=== PATIENT | female | born 1965 | race Caucasian/White ===

== ENCOUNTER → 2016-03-28 | Outpatient (CLI) | payer OTHER, MEDICAID | LOC: BHLMT 15:30 | PROVIDERS: ATTEND Internal Medicine Cardiovascular Disease | DX: I10 Essential (primary) hypertension (principal); I44.4 Left anterior fascicular block | CPT/HCPCS: 93005-PO; 93306-PO ==

== ENCOUNTER 2016-04-08 11:38 | Inpatient (IN) | payer OTHER, MEDICAID ==
[2016-04-08] MEDS ORDERED: NS 1,000 ML IV ONE (12:16)
[2016-04-08] MEDS ORDERED: diphenhydrAMINE 25 MG CAP PO ONE (12:16)
[2016-04-08] MEDS ORDERED: ASPIRIN EC 325 MG TAB PO ONE (12:16)
[2016-04-08] MEDS ORDERED: FAMOTIDINE 20 MG TAB PO ONE (12:16)
[2016-04-08] MEDS ORDERED: DIAZEPAM 5 MG TAB PO ONE (12:16)
--- NOTE | 2016-04-08 12:31 | CPEKG ---
Heart Rate: 62 RR Interval: 968 P-R Interval: 144 QRSD Interval: 96 QT Interval: 448 QTC Interval: 455 P Prewitt: 0 QRS Prewitt: -38 T Wave Prewitt: 59 EKG Severity - BORDERLINE ECG - EKG Impression: SINUS RHYTHM EKG Impression: ATRIAL PREMATURE COMPLEX EKG Impression: LEFT AXIS DEVIATION EKG Impression: BORDERLINE R WAVE PROGRESSION, ANTERIOR LEADS Electronically Signed By: Inocencia Saavedra 08-Apr-2016 12:47:00
[2016-04-08 13:13] LABS: % IMMATURE GRANULYOCYTES 1.2 % (0.0-1.1); ABSOLUTE IMMATURE GRANULOCYTES 0.16 10^3/uL (0.00-0.10); ABSOLUTE NRBC COUNT 0.03 10^3/uL (0-0.01); ADD DIFF? NO; ADD MORPH? NO; ADD SCAN? NO; ATYPICAL LYMPHOCYTE FLAG 0 (0-99); FRAGMENT RBC FLAG 20 (0-99); HEMOGLOBIN 8.4 g/dL (12.6-16.3); LEFT SHIFT FLG 0 (0-99); LIPEMIA HEMOLYSIS FLAG 80 (0-99); MEAN CELL HEMOGLOBIN 26.6 pg (27.9-34.1); MEAN CELL VOLUME 88.6 fL (81.5-99.8); MEAN PLATELET VOLUME 11.3 fL (8.7-11.7); NRBC-AUTO% 0.2 % (0.0-0.2); PLATELET CLUMPS FLAG 10 (0-99); PLATELET COUNT 244 10^3/uL (150-400); RED BLOOD CELL COUNT 3.16 10^6/uL (4.18-5.33); RED CELL DISTRIBUTION WIDTH 16.6 % (11.5-15.2)
[2016-04-08 13:22] LABS: INR 1.02 (0.83-1.16); PROTIME(PATIENT) 13.3 SEC (12.0-15.0)
[2016-04-08 13:33] LABS: ANION GAP 11 mEq/L (8-16); CALCIUM 8.7 mg/dL (8.5-10.4); CARBON DIOXIDE 17 mEq/l (22-31); CHLORIDE 115 mEq/L (97-110); CREATININE 5.1 mg/dL (0.6-1.0); GLOMERULAR FILTRATION RATE 9; GLUCOSE 104 mg/dL (70-100); POTASSIUM 4.1 mEq/L (3.5-5.2); SODIUM 143 mEq/L (134-144)
[2016-04-08 14:12] LABS: MAGNESIUM 2.4 mg/dL (1.6-2.3)
[2016-04-08] MEDS ORDERED: LIDOCAINE 1% 30 ML SDV ONE (14:37)
[2016-04-08] MEDS ORDERED: fentaNYL 100 MCG/2 ML INJ ONE (14:37)
[2016-04-08] MEDS ORDERED: MIDAZOLAM 2 MG/2 ML VIAL ONE (14:37)
[2016-04-08] MEDS ORDERED: IOPAMIDOL (ISOVUE-370) 150 ML BTL IV ONE (14:38)
[2016-04-08] MEDS ORDERED: HYDROCODONE/APAP 5/325 TAB PO PRN (16:48)
--- NOTE | 2016-04-08 17:01 | PDDXCAT ---
Diagnostic Cath Note - . Date: 04/08/16 Dumbwaiter Operator: Bryce Indication: other (Large pericardial effusion with borderline tamponade on echo. ) - Procedure Procedure: other (Pericardiocentesis) Complications: None Estimated blood loss: <50ml Closure method: manual pressure Assessment: Successful pericardiocentesis. Intervention: The patient had a transthoracic echocardiogram performed in the office of [facility] today. I was contacted by Dr. Barbara Lora regarding the findings of a large pericardial effusion with borderline tamponade. The patient was brought to the rn labor delivery and placed on a wedge pillow. Echocardiographic images were obtained at the subxiphoid area in order to protect the path of the pericardiocentesis needle. The subxiphoid area was prepped and draped in sterile fashion. Local anesthesia consisted of 1% lidocaine. A 6 [place] pericardiocentesis catheter was placed into the pericardial space using the modified Seldinger technique. A total of 725 cc of nonbloody straw-colored blood was obtained. Repeat echocardiographic images demonstrated complete evacuation of the pericardial effusion. Patient Problems: Problems Problem Status Diagnosed Esophagitis Acute Pneumonia Acute Renal transplant failure and rejection Acute
[2016-04-08] MEDS ORDERED: OXYCODONE/APAP 5/325 TAB ONE (17:21)
[2016-04-08] MEDS ORDERED: OXYCODONE/APAP 5/325 TAB PO PRN (17:29)
[2016-04-08] MEDS: ONDANSETRON 4 MG/2 ML VIAL IVP PRN (19:57)
[2016-04-08] MEDS ORDERED: NITROGLYCERIN 0.4 MG BTL SL PRN (20:34)
[2016-04-08] MEDS ORDERED: hydrALAZINE 25 MG TAB PO SCH (21:00)
[2016-04-08] MEDS ORDERED: ALLOPURINOL 300 MG TAB PO SCH (21:00)
[2016-04-08] MEDS ORDERED: NON-FORMULARY NEW DRUG (Mycophenolate Sodium [Myfortic] 360 MG) PO SCH (21:00)
[2016-04-08] MEDS: ATORVASTATIN CALCIUM 10 MG TAB PO SCH (21:49)
[2016-04-08] MEDS: TACROLIMUS 1 MG CAP PO SCH (21:49)
[2016-04-08] MEDS: PANTOPRAZOLE SODIUM 40 MG TAB PO SCH (21:49)
[2016-04-08] MEDS: MYCOPHENOLATE SODIUM 180 MG TAB.DR PO SCH (22:16)
[2016-04-08] MEDS: BUMETANIDE 2 MG TAB PO SCH (22:16)
[2016-04-09] MEDS: ACETAMINOPHEN 325 MG TAB PO PRN ×2 (03:36→15:09)
[2016-04-09 05:07] LABS: % IMMATURE GRANULYOCYTES 0.8 % (0.0-1.1); ABSOLUTE IMMATURE GRANULOCYTES 0.11 10^3/uL (0.00-0.10); ABSOLUTE NRBC COUNT 0.02 10^3/uL (0-0.01); ADD DIFF? NO; ADD MORPH? YES; ADD SCAN? NO; ATYPICAL LYMPHOCYTE FLAG 0 (0-99); FRAGMENT RBC FLAG 20 (0-99); HEMATOCRIT 26.8 % (38.0-47.0); HEMOGLOBIN 7.7 g/dL (12.6-16.3); LEFT SHIFT FLG 0 (0-99); LIPEMIA HEMOLYSIS FLAG 70 (0-99); MEAN CELL HEMOGLOBIN 26.2 pg (27.9-34.1); MEAN CELL VOLUME 91.2 fL (81.5-99.8); MEAN PLATELET VOLUME 11.4 fL (8.7-11.7); NRBC-AUTO% 0.2 % (0.0-0.2); PLATELET CLUMPS FLAG 0 (0-99); PLATELET COUNT 223 10^3/uL (150-400); RED BLOOD CELL COUNT 2.94 10^6/uL (4.18-5.33); RED CELL DISTRIBUTION WIDTH 16.6 % (11.5-15.2)
[2016-04-09 05:09] LABS: MEAN CELL HEMOGLOBIN CONCENTR. 28.7 g/dL (32.4-36.7)
[2016-04-09 05:35] LABS: ELLIPTOCYTES 1+; LARGE PLATELETS PRESENT; PLATELET ESTIMATE ADEQUATE (ADEQ); POLYCHROMASIA 1+
[2016-04-09] MEDS: LEVOTHYROXINE 112 MCG TAB PO SCH (06:10)
[2016-04-09] MEDS: ONDANSETRON 4 MG/2 ML VIAL IVP PRN (08:07)
--- NOTE | 2016-04-09 08:54 | SOAPPROG ---
SOAP Progress Note Assessment/Plan: Assessment: See dictated note. Plan: 04/10/16 08:22 Objective: Vital Signs Temp Pulse Resp BP Pulse Ox 36.8 C 63 14 143/75 H 89 L 04/09/16 07:49 04/09/16 07:49 04/09/16 07:49 04/09/16 07:49 04/09/16 07:49 Laboratory Results 04/09/16 03:12 04/08/16 12:20 04/08/16 04/09/16 04/10/16 05:59 05:59 05:59 Intake Total 80 Balance 80 PT 13.3 SEC (12.0-15.0) 04/08/16 12:20 INR 1.02 (0.83-1.16) 04/08/16 12:20 ICD10 Worksheet Patient Problems: Problems Problem Status Diagnosed Esophagitis Acute Pneumonia Acute Renal transplant failure and rejection Acute
[2016-04-09] MEDS ORDERED: ALLOPURINOL 100 MG TAB PO SCH ×2 (09:00→09:06)
[2016-04-09] MEDS ORDERED: SODIUM FERRIC GLUCONAT/SUCROSE 125 MG in NS 100 ML IV SCH (09:00)
[2016-04-09] MEDS ORDERED: CALCITRIOL 1 MCG PO SCH (09:00)
[2016-04-09] MEDS: predniSONE 5 MG TAB PO SCH (09:35)
[2016-04-09] MEDS: CARVEDILOL 6.25 MG TAB PO SCH ×2 (09:35→18:19)
[2016-04-09] MEDS: ISOSORBIDE MONONITRATE 30 MG TAB.SR PO SCH (09:37)
[2016-04-09] MEDS: PANTOPRAZOLE SODIUM 40 MG TAB PO SCH ×2 (09:37→19:45)
[2016-04-09] MEDS: BUMETANIDE 2 MG TAB PO SCH ×2 (09:38→19:46)
[2016-04-09] MEDS: TACROLIMUS 1 MG CAP PO SCH ×2 (09:38→19:45)
[2016-04-09] MEDS: METOLAZONE 2.5 MG TAB PO SCH (09:38)
[2016-04-09] MEDS: CALCITRIOL 0.25 MCG CAP PO SCH (09:39)
--- NOTE | 2016-04-09 09:42 | GCON ---
[f rep st] CONSULTATION NEPHROLOGY CONSULTATION. DATE OF CONSULTATION: 04/08/2016 REASON FOR CONSULTATION: Worsening renal failure, kidney transplant, large pericardial effusion. 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 History is obtained from the patient, as well as the medical records. The patient is a good historian. The patient underwent a donor transplant in 2009, but had an almost immediate donor specific antibody and humoral rejection. Her initial graft function was poor, with creatinine in the 2s, and she had also been exposed to significant immunosuppression. In the years since, she has had chronically worsening renal function. Most recently, over the past month, she has had severely elevated blood pressures, along with a worsening volume status. Accompanying these changes, her creatinine has continued to increase, and is presently around a 5. The patient does have a functioning fistula, although she is believed to have a central stenosis. Last week, the patient had what sounds like a viral gastroenteritis. She had significant chills, vomiting, and diarrhea. This has now resolved. Relating to her blood pressures and cardiovascular status, she was referred to Dr. Manolo Wu. He ordered a Holter monitor and an echocardiogram. On reading the echocardiogram today, Dr. Lora noted a very large pericardial effusion with borderline tamponade physiology. The patient was then directed for admission, and earlier today, she underwent a pericardiocentesis with drainage of 1 L of serous fluid. Interestingly, she remained hypertensive up to the time of the procedure, and following the procedure, her blood pressure is actually improved. She continues to have some nausea. In the past week, she did have some left shoulder pain that was likely consistent with her pericardial effusion. As relating to these above issues, we are asked by the Cardiology Service to assist with the patient's renal diagnosis and management. PAST MEDICAL HISTORY: 1. End-stage renal disease secondary to autosomal polycystic kidney disease. 2. Hemodialysis from 2006 to 2009. 3. 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 4. History of ascites. 5. Abdominal mesh infection. 6. Hyperkalemia. 7. Hypertension. 8. Hyperlipidemia. 9. GERD. 10. Hypothyroidism. 11. Secondary hyperparathyroidism. 12. Reactive airway disease. 13. Past history of pericarditis. 14. Chronic diarrhea. 15. Urinary tract infections. 16. Herpes esophagitis. 17. DVT. 18. Premature atrial complexes. 19. HPV positive with cervical dysplasia. 20. Acquired von Willebrand's disease. 21. History of bradycardia. SURGICAL HISTORY: 1. Multiple, including renal transplant, and dialysis access placement. 2. Stomach mesh removal. HOME MEDICATIONS: Zofran p.r.n., Lipitor 20 mg daily, Ventolin inhaler, acyclovir 400 mg daily, levothyroxine 125 mcg daily, Coreg 12.5 mg daily, Myfortic 360 mg twice daily, Nexium 40 mg twice a day, Procrit every 2 weeks, amlodipine 10 mg daily, sodium bicarbonate 1950 mg twice daily, calcitriol 1 mcg daily, Ambien p.r.n., allopurinol 100 mg three times daily, prednisone 7.5 mg daily, Qvar daily, Prograf 1 mg twice daily, Bumex 4 mg in the morning and 2 mg in the evening, hydralazine 25 mg twice daily. FAMILY HISTORY: Remarkable for end-stage renal disease due to polycystic kidney disease. SOCIAL HISTORY: The patient lives in [place] with her 15-year-old son. Their relationship has been strained as he has had some issues with the law. She does not smoke cigarettes or drink alcohol. REVIEW OF SYSTEMS: The patient has had significant fatigue and nausea. She has not had much in way of headaches. She has had blurred vision. She denies rhinitis or sore throat. She has had cough and shortness of breath. She has had chest pain radiating to her shoulder. She had nausea, vomiting, and diarrhea last week in the likely setting of a viral illness. She also has chronic diarrhea. She has not had issues with urination. She has had lower extremity edema. She denies numbness in her fingers or toes. She has a history of thyroid disease. PHYSICAL EXAMINATION: GENERAL: At the time of exam, she is appropriate and alert, but she appears chronically ill. VITAL SIGNS: Temp 36.5, pulse 60, blood pressure 122/67. HEENT: Eyes, sclerae clear. Oropharynx clear. NECK: No lymphadenopathy or thyromegaly. LUNGS: Clear to auscultation bilaterally. CARDIOVASCULAR: Regular rate and rhythm with a systolic murmur. ABDOMEN: Soft, nontender. /RECTAL: Deferred. EXTREMITIES: 2+ lower extremity edema. INTEGUMENT: Clear. NEURO: No focal findings. LABORATORY STUDIES: White count 13.7, hematocrit 28, platelets 244. Sodium 143 , potassium 4.1, bicarb 17, creatinine 5.1. IMPRESSION AND PLAN: 1. Pericardial effusion. The patient had borderline tamponade physiology, and the effusion was quite large. However, she really did not have evidence of hemodynamic compromise, as she had actually been hypertensive. Since this drainage, her blood pressure has actually been in the 120s. She has not noted any increase in urination since the tap. The tap was serous in nature. Etiologies could include viral, inflammatory, or it could be related to hydralazine. 2. Renal failure. At this point, the patient has very advanced renal failure with hypertension and volume overload. Once the patient is adequately diuresed, I am concerned her creatinine could be as high as 7 or 8. She is aware of having a very close proximity to dialysis. We did discuss this. Her fistula has a good bruit. Prior to starting dialysis, we will plan on performing a fistulogram. 3. Hypertension. This is significantly improved at the present time. 4. Volume overload. The patient will be maintained on her Bumex, and we will add in metolazone. 5. Anemia. She will be continued on her erythropoietin therapy. Thank you for allowing us to participate in this patient's care. We will continue following closely with you. /[id number]/MODL MTDD
--- NOTE | 2016-04-09 10:02 | GCON ---
[f rep st] CONSULTATION REFERRING PHYSICIAN: Barbara Lora MD REASON FOR CONSULTATION: Stage 5 kidney disease. HISTORY OF PRESENT ILLNESS: This patient is well known to me. She had end-stage renal disease due t o polycystic kidney disease status post kidney transplant from a done, July 01, 2009, [facility]. She had early humoral rejection and underwent plasmapheresis and IVIG therapy. She has had gradual decline in her renal function. She has had past problems with serositis a coup le of years after transplant as well as a prior pericardial effusion that was never completely unders tood. She had been followed by Dr. Wu. She developed herpes esophagitis necessitating cessation of her CellCept; prior history of chronic di arrhea that currently is somewhat quiescent; recurrent urinary tract infections; prior diverticuliti s with contained perforation treated medically. She had cervical dysplasia, DIANA-3, with a recent con e biopsy. She had had intermittent problems with edema over the past year. This has responded intermittently t o diuretics. More recently, this last week, she had chills and diarrhea and thought she had a viral illness. She developed intermittent palpitations and was seen by Dr. Wu' office. Echocardiogr am revealed a large pericardial effusion, which she was referred in here for a pericardiocentesis, wh ich she underwent yesterday; 725 cc of straw-colored fluid were aspirated. She denies any fevers. S he has had some intermittent left shoulder plain with a deep breath but otherwise is not having chest pain. Her blood pressures recently have been running quite high in the 180s. She has a very stressful home situation related to some psychosocial and behavioral problems with her teenage son. For this reaso n, she has not yet been able to be listed with [facility]. Her creatinine this week bumped from her recent baseline in the 3-4 range up to 5.2. She had noted s ome slowing in urine output but no change in color or symptoms of urinary tract infection. PAST MEDICAL HISTORY: See HPI. Recurrent gout. Secondary hyperparathyroidism, hypothyroidism. RICK D. Hyperlipidemia. Hypertension, hyperkalemia on Aldactone. Prior ascites on everolimus. Prior pe ritoneal dialysis, left AV fistula placement. Arachnoid cyst status post surgical correction in 2006 with recurrence deemed not to need surgical management. Neutrophilic leukocytosis thought to be luis ctive by Hematology, possibly due to her chronic humoral rejection. Acquired von Willebrand disease attributed to her chronic kidney disease. Anemia of chronic kidney disease and iron deficiency on Pr ocrit as an outpatient. PAST SURGICAL HISTORY: History of abdominal mesh placement and removal due to infection. Left arm A V fistula. FAMILY HISTORY: Notable for extensive polycystic kidney disease. SOCIAL HISTORY: She had 4 children and lives at home. See HPI. She does not smoke or drink alcohol . REVIEW OF SYSTEMS: See HPI. She has some mild dyspnea on exertion, which is not significant at this point. She had gained 15 pounds recently. ALLERGIES: She has been intolerant of Venofer due to headaches. Prior sulfa allergy but tolerates l oop diuretics okay. Levaquin, Keflex, Cipro, iodine, peanuts, plastics, tape, and otherwise as in ho spital chart. REVIEW OF SYSTEMS: See HPI. No nausea, vomiting, loss of appetite, pruritus, rashes, joint pains. Otherwise 10-systems review negative in detail. PHYSICAL EXAMINATION: VITAL SIGNS: 143/75, heart rate 53, respirations 14, 89% on room air, 36.8 C. GENERAL: Comfortable, well-appearing, slightly overweigh, female in bed who is in good s pirits. HEENT: Eyes without scleral icterus. Oral mucosa is moist with some mild white exudates on her left cheek. NECK: No gross lymphadenopathy. HEART: Regular rate and rhythm with a 2/6 systol ic murmur. LUNGS: Clear to auscultation bilaterally. ABDOMEN: Obese, soft, and nontender. No sup rapubic tenderness. EXTREMITIES: Lower extremities with 2+, [id number], pitting edema. Her lef t arm has a tortuous and enlarged upper arm AV fistula with a good thrill. SKIN: Without rashes. M USCULOSKELETAL: No gross joint swelling or deformities. NEUROLOGIC: No gross focal deficits. LABORATORY DATA: Sodium 143, potassium 4.1, CO2 17, BUN 63, creatinine 5.1. Calcium 8.7. Magnesium 2.4. White count 13, hemoglobin 7.7, platelets 223. IMPRESSION AND PLAN: 1. Stage 5 chronic kidney disease. Her creatinine has recently bumped, possibly hemodynamic related to her pericardial effusion although this seems less likely given that she was hypertensive not hypo tensive at home. Given her recent increases in edema, I am more suspicious this may be a manifestati on of progression of her underlying chronic humoral rejection. Furthermore, her effusion could possi skyler be uremic. She clinically does not appear to have any acute needs for dialysis, but if her effus ion were to recur shortly, I think this would be an indication to start. She will need a fistulogram prior to starting due to a likely central stenosis. She will keep in close touch with our clinic af ter discharge. If we are not able to get control of her edema, that would be another reason to begin dialysis. This decision can likely be made as an outpatient. 2. Pericardial effusion status post tap yesterday. Fluid studies are not yet in the system. Could be hydrostatic versus uremic. She has a history of effusion previously. I would also wonder about s erositis as a manifestation of her underlying chronic humoral rejection. Will check some autoimmune serologies. She does not appear ill, and the fluid was straw colored. Unlikely to be malignant or i nfectious. Could be viral as well given her recent viral symptoms. 3. AV fistula. As above, she will need a fistulogram. I will defer ordering this until we are clos e to needing to start dialysis. 4. Prior kidney transplant. Continue current doses of prednisone and tacrolimus. 5. Anemia of chronic kidney disease. Since she is in-house, I would like to give her a trial of IV Ferrlecit. She has been unable to tolerate oral iron or Venofer in the past due to constipation and headaches. 6. Hypertension. Blood pressure was very high at home but now seems well controlled. I suspect at least a component of this is related to her stressful home situation. 7. Edema. She has been started on metolazone, which I just ordered as an outpatient. We will see h ow she does with this. /[id number]/MODL
[2016-04-09] MEDS: MYCOPHENOLATE SODIUM 180 MG TAB.DR PO SCH ×2 (10:27→19:46)
--- NOTE | 2016-04-09 11:59 | PDCARPN ---
Cardiology Progress Note Assessment/Plan: 51 y/o F admitted for finding of a large pericardial effusion with borderline tamponade physiology. Likely to require greater than 2 midnights given her complex medical history. Pericardial Effusion-s/p pericardiocentesis yesterday with removal of 725 cc of straw-colored fluid. Lab studies pending. Likely uremic in etiology. Some chest discomfort and nausea this a.m. Limited echo this morning demonstrates a small residual effusion. Will plan for repeat outpatient echo in 7-10 days. Hypertension-improved following pericardiocentesis. Continue current medications. Acute and chronic kidney disease of a transplanted kidney- Was seen by her usual panel maker this morning. Metolazone added. May need to initiate dialysis soon. Disposition- Home today or tomorrow. 04/09/16 11:50 Subjective: Chest pain and nausea this a.m. when up and around. Objective: Vital Signs (8 Hrs) Temp Pulse Resp BP Pulse Ox 04/09/16 11:40 36.8 C 53 L 16 127/66 H 91 L 04/09/16 07:49 36.8 C 63 14 143/75 H 89 L Intake/Output (24 Hrs) 04/08/16 04/09/16 04/10/16 05:59 05:59 05:59 Intake Total 80 300 Balance 80 300 Intake: Oral (ml) 80 300 Other: Weight 82.6 kg Number of Voids Toilet 1 Result Diagrams: 04/09/16 03:12 04/08/16 12:20 - Physical Exam Constitutional: no apparent distress Eyes: anicteric sclera Ears, Nose, Mouth, Throat: moist mucous membranes Cardiovascular: regular rate and rhythm, no murmurs, no rubs Respiratory: clear to auscultate bilat Gastrointestinal: normoactive bowel sounds, no tenderness, no masses Skin: no rashes, no edema Neurologic: AAOx3 Psychiatric: not anxious ICD10 Worksheet Patient Problems: Problems Problem Status Diagnosed Esophagitis Acute Pneumonia Acute Renal transplant failure and rejection Acute
[2016-04-09] MEDS ORDERED: VALACYCLOVIR PO SCH (12:00)
--- NOTE | 2016-04-09 13:25 | ECHO ---
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 Left ventricular systolic function is normal. Pericardium/Pleural Large pericardial effusion. Following pericardiocentesis, there is near complete resolution of the pericardial effusion. Conclusion This is a limited study to evaluate pericardial effusion. The left ventricle is normal in size. Left ventricular systolic function is normal. Following pericardiocentesis, there is near complete resolution of the pericardial effusion. Final Reading Physician: Lyn Hernandez signed on 04/09/2016 01:23 PM Ordering Physician: Manolo Wu Performed By: Manolo Wu MD
--- NOTE | 2016-04-09 13:28 | ECHO ---
[id number] + + [address] : : [facility] [address] : : [phone] + + Adult Echocardiographic Report + ------+ :Name: OMAR JUNIOR Date: 04/09/2016 10:33 AM : : Hospital Admission Number: [id number] Locatio n: 200: :: 1965 Gender: Female : :Age: 51 yrs Race: WH : :Reason For Study: eval for pericardial effusion : :History: S/P pericardiocentesis : + ------+ Left Ventricle The left ventricle is normal in size. Left ventricular systolic function is normal. Conclusion Limted echocardiogram to reassess pericardial effusion. Patient is S/P pericardiocentesis 04/08/16. There is a mild to moderate amount of fluid around the RV and RA. There is a moderate amount of fluild around the LV. IVC is dilated. There is no echocardiographic evidence of tamponade. The left ventricle is normal in size. Left ventricular systolic function is normal. Final Reading Physician: Lyn Hernandez signed on 04/09/2016 01:27 PM Ordering Physician: Manolo Wu Performed By: Gladys Amador
[2016-04-09] MEDS: ACYCLOVIR 400 MG TAB PO SCH ×2 (13:34→13:36)
[2016-04-09] MEDS: NYSTATIN SUSP 500000 UNIT/5 ML UDCUP PO SCH ×3 (13:36→19:46)
[2016-04-09] MEDS: ALLOPURINOL 100 MG TAB PO SCH (13:40)
[2016-04-09] MEDS: ATORVASTATIN CALCIUM 10 MG TAB PO SCH (19:46)
[2016-04-09] MEDS ORDERED: NON-FORMULARY NEW DRUG (Simvastatin [Zocor 20 Mg] 20 MG) PO SCH (20:00)
[2016-04-10 05:31] LABS: % IMMATURE GRANULYOCYTES 1.2 % (0.0-1.1); ABSOLUTE IMMATURE GRANULOCYTES 0.12 10^3/uL (0.00-0.10); ADD DIFF? NO; ADD MORPH? NO; ADD SCAN? NO; ATYPICAL LYMPHOCYTE FLAG 0 (0-99); FRAGMENT RBC FLAG 20 (0-99); HEMATOCRIT 25.2 % (38.0-47.0); HEMOGLOBIN 7.4 g/dL (12.6-16.3); LEFT SHIFT FLG 0 (0-99); LIPEMIA HEMOLYSIS FLAG 70 (0-99); MEAN CELL HEMOGLOBIN 26.3 pg (27.9-34.1); MEAN CELL HEMOGLOBIN CONCENTR. 29.4 g/dL (32.4-36.7); MEAN CELL VOLUME 89.7 fL (81.5-99.8); MEAN PLATELET VOLUME 11.4 fL (8.7-11.7); PLATELET CLUMPS FLAG 0 (0-99); PLATELET COUNT 207 10^3/uL (150-400); RED BLOOD CELL COUNT 2.81 10^6/uL (4.18-5.33); RED CELL DISTRIBUTION WIDTH 16.1 % (11.5-15.2)
[2016-04-10 06:02] LABS: ALBUMIN 2.7 g/dL (3.5-5.0); ANION GAP 11 mEq/L (8-16); C-REACTIVE PROTEIN 55.9 mg/L (<10.0); CALCIUM 8.2 mg/dL (8.5-10.4); CARBON DIOXIDE 15 mEq/l (22-31); CHLORIDE 115 mEq/L (97-110); CREATININE 5.4 mg/dL (0.6-1.0); GLOMERULAR FILTRATION RATE 8; GLUCOSE 84 mg/dL (70-100); POTASSIUM 4.8 mEq/L (3.5-5.2); SODIUM 141 mEq/L (134-144)
[2016-04-10 06:46] LABS: SEDIMENTATION RATE 32 MM/HR (0-30)
[2016-04-10] MEDS: LEVOTHYROXINE 112 MCG TAB PO SCH (06:57)
[2016-04-10] MEDS: NYSTATIN SUSP 500000 UNIT/5 ML UDCUP PO SCH ×2 (06:59→11:56)
[2016-04-10 08:22] VITALS: BP 139/76; PULSE 68; RESP 14; TEMP 98.6; O2SAT 91
[2016-04-10] MEDS: BUMETANIDE 2 MG TAB PO SCH (08:50)
[2016-04-10] MEDS: ALLOPURINOL 100 MG TAB PO SCH (08:51)
[2016-04-10] MEDS: TACROLIMUS 1 MG CAP PO SCH (08:51)
[2016-04-10] MEDS: ISOSORBIDE MONONITRATE 30 MG TAB.SR PO SCH (08:51)
[2016-04-10] MEDS: MYCOPHENOLATE SODIUM 180 MG TAB.DR PO SCH (08:52)
[2016-04-10] MEDS: PANTOPRAZOLE SODIUM 40 MG TAB PO SCH (08:52)
[2016-04-10] MEDS: METOLAZONE 2.5 MG TAB PO SCH (08:52)
[2016-04-10] MEDS: CALCITRIOL 0.25 MCG CAP PO SCH (08:52)
[2016-04-10] MEDS: predniSONE 5 MG TAB PO SCH (08:53)
[2016-04-10] MEDS: CARVEDILOL 6.25 MG TAB PO SCH (08:53)
--- NOTE | 2016-04-10 09:47 | SOAPPROG ---
SOAP Progress Note Assessment/Plan: Assessment: 1. MARISA on CKD V. Creat has not improved despite pericardiocentesis. Up to 5.4 today. eGFR 8. Pericardial effusion seems likely to be uremic. Discussed that dialysis is imminent. Pt stongly prefers to wait, f/u as outpatient. Check q wk labs, has f/u in clinic in 1-2 wks. 2. Pericardial effusion. Cxs neg thus far. No wbc, >700 rbc. CRP high. Likely uremic vs serositis possibly related to her chronic tx rejection (has CRP > 50) , possibly hydrostatic related to edema. Serologies pending for AI causes, AFB/ cytology pending. F/u echo net week. If fluid reaccumulating needs to start HD. 3. AVF. Central stenosis. Needs fistulagram before starting HD. 4. Kidney tx. Continue pred/prograf. Failing d/t chronic humoral rejection. 5. Edema. Metolazone added. Follow home weights. Shoot for gradual loss to around 170 lbs. Plan: 04/10/16 08:22 04/10/16 09:40 Subjective: C/o limited food selection. Has noted increased uop with metolazone. O/w not expressing complaints. Objective: Vital Signs Temp Pulse Resp BP Pulse Ox 37.0 C 68 14 139/76 H 91 L 04/10/16 08:21 04/10/16 08:21 04/10/16 08:21 04/10/16 08:21 04/10/16 08:21 Microbiology 04/08/16 11:33 Mycobacterial Smear (KENNETH) - Final Pericardial Fluid - Aspirate 04/08/16 11:33 Gram Stain - Final Pericardial Fluid - Aspirate Laboratory Results 04/10/16 03:57 04/10/16 03:57 04/09/16 04/10/16 04/11/16 05:59 05:59 05:59 Intake Total 80 1350 Balance 80 1350 PT 13.3 SEC (12.0-15.0) 04/08/16 12:20 INR 1.02 (0.83-1.16) 04/08/16 12:20 Comfortable wf in bed RRR, no m/g/r CTAB Abdom soft, nt 2-3+ LE pitting edema ICD10 Worksheet Patient Problems: Problems Problem Status Diagnosed Esophagitis Acute Pneumonia Acute Renal transplant failure and rejection Acute
[2016-04-10] MEDS: ACYCLOVIR 400 MG TAB PO SCH (11:56)
--- NOTE | 2016-04-10 12:02 | GDS ---
[f rep st] DISCHARGE SUMMARY REASON FOR ECHO: Large pericardial effusion. HOSPITAL COURSE: Please refer to her recent office note which serves as the history and physical for this hospital encounter. The patient is a 51-year-old woman with end-stage renal disease, status po st a cadaveric renal transplant in 2009. Unfortunately, she has had issues from early on after her t ransplant. Recently, her kidney function has deteriorated significantly with a creatinine in excess of 5. She was seen in our office by Graham Gomes, nurse practitioner. She reported episodes of irregular heart rhythm, some chest discomfort, worsening fluid retention. She was scheduled for an e chocardiogram. On April 08, she came to the office for her echo and the images demonstrated a larg e pericardial effusion with borderline tamponade physiology. Based on the findings, she was sent dir ectly to the [facility] to undergo pericardiocentesis. This was carried out on the afternoon of April 08, then a total of 725 cc of straw-colored fluid was removed. Followup echo images the next morning de monstrated a small amount of residual pericardial fluid, most of which was located posteriorly. She had some chest discomfort and nausea the morning after her procedure. She was kept in the hospital o vernight for further observation. Today, she is feeling better and is ready for discharge. During t his hospital stay, she was seen by Dr. Dustin Maldonado, who is her usual castings trimmer. His feeling is that she will likely need to initiate dialysis in the near future. For now, she would prefer to hold off if possible. Dr. Maldonado added metolazone to her regimen to help with her fluid retention. RECOMMENDATIONS AND DISPOSITION ON DISCHARGE: The patient is discharged in stable condition. She sh ould continue to follow a renal diet. Please refer to the medication reconciliation section of the e lectronic chart. The only change to her home medications is the addition of metolazone [address] Maldonado plans to follow her up closely with frequent monitoring of her electrolytes and renal fun ction. She is scheduled for a followup appointment with Graham Gomes, nurse practitioner, on Apr ruary at 2 o'clock. Immediately prior to that appointment, at 1:15 p.m., she will undergo a limite d echocardiogram to assess for the accumulation of her pericardial effusion. Dr. Maldonado indicated t hat if she demonstrates early pericardial fluid reaccumulation that would serve as an indication to s tart dialysis relatively soon. DISCHARGE DIAGNOSES: 1. End-stage renal disease. 2. Pericardial effusion likely uremic in etiology. /[id number]/MODL
[2016-04-11 18:16] LABS: C3 COMPLEMENT COMPONENT 114 mg/dL (75 - 175); C4 COMPLEMENT COMPONENT 33 mg/dL (14 - 40)
== END 2016-04-10 12:21 | disposition home health service (06) | DRG 314 ==
LOC: FCATH 11:38 → F2W 17:01
PROVIDERS: ADMIT Internal Medicine Interventional Cardiology; ATTEND Internal Medicine Interventional Cardiology
PROC: 0W9D3ZZ Drainage of Pericardial Cavity, Percutaneous Approach (ICD-10-PCS; principal; 2016-04-08)
DX: I31.3 Pericardial effusion (noninflammatory) (principal); N18.6 End stage renal disease; D68.0 Von Willebrand disease; I12.0 Hypertensive chronic kidney disease with stage 5 chronic kidney disease or end stage renal disease; Z94.0 Kidney transplant status; E78.5 Hyperlipidemia, unspecified; I44.4 Left anterior fascicular block; D63.1 Anemia in chronic kidney disease; E03.9 Hypothyroidism, unspecified; E21.1 Secondary hyperparathyroidism, not elsewhere classified; J45.909 Unspecified asthma, uncomplicated; Z86.718 Personal history of other venous thrombosis and embolism
CPT/HCPCS: 83516-90; 83520-90; J1644; J2250; J2405; J2916; J3010; J7507; Q9967

== ENCOUNTER → 2016-04-08 | Outpatient (CLI) | payer OTHER, MEDICAID | LOC: BHFA 10:00 | PROVIDERS: ATTEND Internal Medicine Cardiovascular Disease | DX: R07.9 Chest pain, unspecified (principal); R00.2 Palpitations; I10 Essential (primary) hypertension ==

== ENCOUNTER → 2016-04-17 | Outpatient (CLI) | payer OTHER, MEDICAID | LOC: BHLMT 08:30 | PROVIDERS: ATTEND Internal Medicine Interventional Cardiology | DX: I31.9 Disease of pericardium, unspecified (principal) | CPT/HCPCS: 93306-PO ==

== ENCOUNTER → 2016-05-15 | Outpatient (CLI) | payer OTHER | LOC: BHLMT 09:15 | PROVIDERS: ATTEND Internal Medicine Interventional Cardiology | DX: I31.9 Disease of pericardium, unspecified (principal) | CPT/HCPCS: 93306-PO ==

== ENCOUNTER → 2016-07-15 | Outpatient (CLI) | payer OTHER, MEDICAID | LOC: BHLMT 10:00 | PROVIDERS: ATTEND Internal Medicine Interventional Cardiology | DX: I31.9 Disease of pericardium, unspecified (principal) | CPT/HCPCS: 93306-PO ==

== ENCOUNTER → 2016-09-03 | Outpatient (CLI) | payer OTHER, MEDICAID | LOC: FIMAGING 15:07 | PROVIDERS: ATTEND Psychiatry & Neurology Neurology | DX: M51.34 Other intervertebral disc degeneration, thoracic region (principal) ==

== ENCOUNTER 2016-09-11 08:49 | Emergency (ER) | payer OTHER, MEDICAID ==
--- NOTE | 2016-09-11 09:02 | CPEKG ---
Heart Rate: 61 RR Interval: 984 P-R Interval: 160 QRSD Interval: 102 QT Interval: 424 QTC Interval: 427 P [place]: 1 QRS [place]: -43 T Wave [place]: -4 EKG Severity - ABNORMAL ECG - EKG Impression: SINUS RHYTHM EKG Impression: LEFT ANTERIOR FASCICULAR BLOCK EKG Impression: LEFT VENTRICULAR HYPERTROPHY EKG Impression: BORDERLINE T ABNORMALITIES, INFERIOR LEADS Electronically Signed By: Manolo Wu 12-Sep-2016 14:00:27
--- NOTE | 2016-09-11 09:02 | EDPHY ---
HPI/HX/ROS/PE/MDM Narrative: CHIEF COMPLAINT: Chest pain. HPI: The patient is a 51-year-old female, with history of end-stage renal disease, on dialysis, brought in by EMS, with complaints of chest pain that started yesterday while at dialysis. The patient states she started to feel lightheaded and nauseous. She was given Phenergan and subsequently felt anxious. She went to her primary care physician today complaining of continued chest pain, unrelieved with 2 Nitro. She states her pain is a 7/10 in severity. Chest pain is localized to the substernal region. She denies shortness of breath , lightheadedness, or REVIEW OF SYSTEMS: Aside from elements discussed in the HPI, a comprehensive 10-point review of systems was reviewed and is negative. PMH: End-stage renal disease, Pericardial effusion SOCIAL HISTORY: Single. Lives in [place]. PHYSICAL EXAM: General: Patient is alert, in no acute distress. ENT: Eyes are normal to inspection. ENT inspection normal. Neck: Normal inspection. Full range of motion. Respiratory: No respiratory distress. Breath sounds normal bilaterally. Cardiovascular: Regular rate and rhythm. Strong peripheral pulses. Abdomen: The abdomen is nontender to palpation. There are no peritoneal signs. There are normal bowel sounds. Back: Normal to inspection. No tenderness to palpation. Skin: Normal color. No rash. Warm and dry. Extremities: Normal appearance. Full range of motion. Neuro: Oriented x3. Normal motor function. Normal sensory function. Portions of this note were transcribed by a medical coordinator pesticide use. I personally performed a history, physical exam, medical decision making, and confirmed accuracy of information the transcribed note. ED Course: Patient was admitted for pericardial effusion in April 2016. She had pericardiocentesis with 700ccs of fluid drained. Patient presents today with chest pain, worse with exertion. Plan for lab work, chest x-ray, and EKG. EKG was ordered and interpreted by myself. Please see [employer] system for official reading. Sinus rhythm, left anterior fascicular block. Left ventricle hypertrophy. Chest x-ray reveals possible pericarditis. Patient's creatinine today is 6.2. BUN is elevated at 39. 1020: I consulted [facility], they will see the patient in the ED. 1105: Patient was evaluated by Dr. Garg, Cardiology. He will followup with the patient as an outpatient. MDM: This patient presents with exertional chest pain in the setting of ongoing dialysis and history or prior tamponade. Her echo in the ED today is essentially unremarkable. Her ECG and troponin and normal. I consulted [facility] to see patient. Itzel and Dr. Garg reviewed the patient's findings and records and recommend no admission today - they have established an appointment tomorrow afternoon and feel that patient may be safely discharged. I spoke with the patient and she is comfortable with this plan . - Data Points Imaging Results: Imaging Impressions Chest X-Ray 09/11/16 08:58 Impression: New cardiomegaly without failure. Query pericarditis versus cardiomyopathy? Laboratory Results: Laboratory Results 09/11/16 09:18 09/11/16 09:18 09/11/16 09/11/16 09:18 09:18 WBC 11.93 10^3/uL H 10^3/uL (3.80-9.50) RBC 3.01 10^6/uL L 10^6/uL (4.18-5.33) Hgb 9.7 g/dL L g/dL (12.6-16.3) Hct 30.0 % L % (38.0-47.0) MCV 99.7 fL fL (81.5-99.8) MCH 32.2 pg pg (27.9-34.1) MCHC 32.3 g/dL L g/dL (32.4-36.7) RDW 17.8 % H % (11.5-15.2) Plt Count 179 10^3/uL 10^3/uL (150-400) MPV 11.3 fL fL (8.7-11.7) Neut % (Auto) 84.9 % H % (39.3-74.2) Lymph % (Auto) 7.0 % L % (15.0-45.0) [place] % (Auto) 6.5 % % (4.5-13.0) Eos % (Auto) 0.8 % % (0.6-7.6) Baso % (Auto) 0.3 % % (0.3-1.7) Nucleat RBC Rel Count 0.0 % % (0.0-0.2) Absolute Neuts (auto) 10.14 10^3/uL H 10^3/uL (1.70-6.50) Absolute Lymphs (auto) 0.83 10^3/uL L 10^3/uL (1.00-3.00) Absolute Monos (auto) 0.77 10^3/uL 10^3/uL (0.30-0.80) Absolute Eos (auto) 0.10 10^3/uL 10^3/uL (0.03-0.40) Absolute Basos (auto) 0.03 10^3/uL 10^3/uL (0.02-0.10) Absolute Nucleated RBC 0.00 10^3/uL 10^3/uL (0-0.01) Immature Gran % 0.5 % % (0.0-1.1) Immature Gran # 0.06 10^3/uL 10^3/uL (0.00-0.10) Sodium 141 mEq/L mEq/L (134-144) Potassium 4.3 mEq/L mEq/L (3.5-5.2) Chloride 98 mEq/L mEq/L (97-110) Carbon Dioxide 30 mEq/l mEq/l (22-31) Anion Gap 13 mEq/L mEq/L (8-16) BUN 39 mg/dL H mg/dL (7-23) Creatinine 6.2 mg/dL H mg/dL (0.6-1.0) Estimated GFR 7 Glucose 96 mg/dL mg/dL (70-100) Calcium 9.0 mg/dL mg/dL (8.5-10.4) Troponin I 0.017 ng/mL ng/mL (0-0.034) General Initial Vital Signs: Initial Vital Signs Temperature (C) 36.9 C 09/11/16 08:49 Heart Rate 62 09/11/16 08:49 Respiratory Rate 16 09/11/16 08:49 Blood Pressure 125/73 H 09/11/16 08:49 O2 Sat (%) 92 09/11/16 08:49 O2 Delivery Mode Nasal Cannula O2 (L/minute) 2 Allergies/Adverse Reactions: vancomycin Allergy (Mild, Verified 09/11/16 08:58) Rash cephalexin monohydrate [From Keflex] Allergy (Verified 09/11/16 08:58) iodine Allergy (Verified 09/11/16 08:58) levofloxacin [From Levaquin] Allergy (Verified 09/11/16 08:58) Sulfa (Sulfonamide Antibiotics) Allergy (Verified 09/11/16 08:58) Nuts Allergy (Uncoded 07/30/13 19:23) plastic tape Allergy (Uncoded 04/08/16 18:16) Home Medications: Medication Instructions Recorded Albuterol Sulfate [Albuterol 1 - 2 puffs IH Q4H PRN 07/29/13 Inhaler Hfa] Allopurinol [Allopurinol 100 MG 300 mg PO HS 07/29/13 (*)] Calcitriol [Rocaltrol] 1 mcg PO DAILY 07/29/13 Nitroglycerin [Nitrostat 0.4 mg 0.4 mg SL PRN PRN 07/29/13 (*)] Simvastatin [Zocor 20 mg] 20 mg PO DAILY20 07/29/13 predniSONE 7.5 mg PO DAILY 07/29/13 Acyclovir 400 mg PO DAILY@12 04/08/16 Bumetanide [Bumex (*)] 2 mg PO Q12 04/08/16 Carvedilol [Coreg (*)] 6.25 mg PO BIDMEAL 04/08/16 Isosorbide Mononitrate [Imdur 30 30 mg PO DAILY 04/08/16 mg (*)] Levothyroxine [Synthroid 112 mcg 112 mcg PO DAILY06 04/08/16 (*)] Oxycodone Ir [Oxy Ir 5 mg (RX)] 5 - 10 mg PO Q4 PRN 04/08/16 Metolazone [Zaroxolyn] 5 mg PO DAILY #30 tab 04/10/16 Aspirin 09/11/16 Dialyvite Tablet 09/11/16 EPIPEN 09/11/16 Nexium 09/11/16 Norvasc 09/11/16 Prograf 09/11/16 Qvar 09/11/16 RENVELA 09/11/16 Sodium Bicarbonate 09/11/16 Tranexamic Acid 09/11/16 Zofran Odt 09/11/16 Zolpidem Tartrate 09/11/16 Departure - Departure Disposition: Home, Routine, Self-Care Clinical Impression: Chest pain Qualifiers: Chest pain type: unspecified Qualified Code(s): R07.9 - Chest pain, unspecified Condition: Good Instructions: Chest Pain (ED) Additional Instructions: Please followup with Dr. Wu with [facility] tomorrow at 1pm. Referrals: Manolo Wu MD [Medical Doctor] - As per Instructions (Cardiology) [facility] [Provider Group] - As per Instructions Report Scribed for: Portillo Gray Report Scribed by: Nicoel Vo Date of Report: 09/11/16 Time of Report: 09:12
[2016-09-11 09:24] LABS: % IMMATURE GRANULYOCYTES 0.5 % (0.0-1.1); ABSOLUTE IMMATURE GRANULOCYTES 0.06 10^3/uL (0.00-0.10); ADD DIFF? NO; ADD MORPH? NO; ADD SCAN? YES; ATYPICAL LYMPHOCYTE FLAG 0 (0-99); FRAGMENT RBC FLAG 0 (0-99); HEMOGLOBIN 9.7 g/dL (12.6-16.3); LEFT SHIFT FLG 0 (0-99); LIPEMIA HEMOLYSIS FLAG 80 (0-99); MEAN CELL HEMOGLOBIN 32.2 pg (27.9-34.1); MEAN CELL HEMOGLOBIN CONCENTR. 32.3 g/dL (32.4-36.7); MEAN CELL VOLUME 99.7 fL (81.5-99.8); MEAN PLATELET VOLUME 11.3 fL (8.7-11.7); PLATELET CLUMPS FLAG 0 (0-99); PLATELET COUNT 179 10^3/uL (150-400); RED BLOOD CELL COUNT 3.01 10^6/uL (4.18-5.33); RED CELL DISTRIBUTION WIDTH 17.8 % (11.5-15.2)
[2016-09-11 09:37] LABS: ANION GAP 13 mEq/L (8-16); CARBON DIOXIDE 30 mEq/l (22-31); CHLORIDE 98 mEq/L (97-110); CREATININE 6.2 mg/dL (0.6-1.0); GLOMERULAR FILTRATION RATE 7; GLUCOSE 96 mg/dL (70-100); POTASSIUM 4.3 mEq/L (3.5-5.2); SODIUM 141 mEq/L (134-144)
[2016-09-11 09:49] LABS: TROPONIN I 0.017 ng/mL (0-0.034)
[2016-09-11 09:52] LABS: SCAN NEGATIVE
[2016-09-11 11:25] VITALS: BP 132/78; PULSE 68; RESP 15; TEMP 98.2; O2SAT 96
--- NOTE | 2016-09-11 12:02 | ECHO ---
[id number] + + [address] : : [place] [address] : : [phone] + Adult Echocardiographic Report + ---+ :Name: OMAR JUNIOR Date: 09/11/2016 09:32 AM : : Hospital Admission Number: [id number] Location: ER: :: 1965 Gender: Female : :Age: 51 yrs Race: WH : :Reason For Study: Eval for Pericardial Effusion : :History: Pericardiocentisis 04/08/16, Now presenting with : :SOB and CP : + ---+ Doppler Measurements \T\ Calculations MV E max lennie: 97.2 cm/sec Left Ventricle The left ventricle is normal in size. There is normal left ventricular wall thickness. The left ventricular ejection fraction is normal. Ejection Fraction = 60%. The left ventricular wall motion is normal. Right Ventricle The right ventricle is grossly normal size. The right ventricular systolic function is normal. Mitral Valve The mitral valve leaflets appear normal. There is no evidence of stenosis, fluttering, or prolapse. Tricuspid Valve Normal tricuspid valve. Aortic Valve The aortic valve is trileaflet. The aortic valve opens well. Pulmonic Valve The pulmonic valve is not well visualized. Pericardium/Pleural Small posterior pericardial effusion. There are no echocardiographic indications of cardiac tamponade. Conclusion This is a limited echo to evaluate for pericardial effusion. (1) Limited echocardiogram for assessment of pericardial effusion (2) Normal left ventricular systolic ejection fraction (60%) - normal wall motion (3) Normal RV, RA, LA chamber dimensions (4) There is a small posterior pericardial effusion without tamponade physiology noted (5) In comparison to prior, the pericardial size is smaller Final Reading Physician: Lyn Pearson signed on 09/11/2016 11:59 AM Ordering Physician: Portillo Gray Performed By: Justen Painter, [facility]
== END 2016-09-11 11:24 | disposition home or self-care (01) ==
LOC: EDUNIT#
DX: R07.9 Chest pain, unspecified (principal); Z79.82 Long term (current) use of aspirin

== ENCOUNTER 2016-09-15 08:31 | Day surgery (SDC) | payer OTHER, MEDICAID ==
[~2016-09-15 08:31] MED LIST: BUPIVACAINE/EPI 0.25% 30 ML SDV ONE; DEXAMETHASONE 4 MG/ML VIAL ONE; LIDOCAINE 2% 5 ML SDV ONE; ROCURONIUM 50 MG/5 ML VIAL ONE
--- NOTE | 2016-09-15 08:44 | PDHPUP ---
History & Physical Update H&P update statement: This history and physical update is based on an assessment of the patient which was completed after admission or registration (within 24 hours), but prior to the surgery/procedure. H&P changes: Pt had chest pain last week. Went to ER, saw her pipe changer, got EKG and echo. Had new clearance written by Cards done 09/12, in chart. We have pulm clearance as well.
[2016-09-15] MEDS ORDERED: LIDOCAINE 1% 2 ML INJ ID PRN (08:55)
[2016-09-15] MEDS ORDERED: NS 1,000 ML IV ONE (08:55)
[2016-09-15] MEDS ORDERED: MINERAL OIL 10 ML VIAL ONE (09:16)
[2016-09-15] MEDS ORDERED: AMPICILLIN/SULBACTAM 1.5 GM in NS 50 ML IV ONE (09:20)
[2016-09-15] MEDS ORDERED: MIDAZOLAM 2 MG/2 ML VIAL IVP ONE (09:25)
--- NOTE | 2016-09-15 09:25 | PDANEPAE ---
ANE History of Present Illness excision of oral lesions ANE Past Medical History - Cardiovascular History Hx Hypertension: Yes Hx Arrhythmias: No Hx Chest Pain: Yes Hx Coronary Artery / Peripheral Vascular Disease: No Hx CHF / Valvular Disease: No Hx Palpitations: No Cardiovascular History Comment: seen in ED 09/11 with chest pain, dr. calvert 09/12 for follow up - Pulmonary History Hx COPD: No Hx Asthma/Reactive Airway Disease: Yes Hx Recent Upper Respiratory Infection: No Hx Oxygen in Use at Home: No Hx Sleep Apnea: No Sleep Apnea Screening Result - Last Documented: Positive Pulmonary History Comment: h/o sleep apnea - Neurologic History Hx Cerebrovascular Accident: No Hx Seizures: Yes Hx Dementia: No - Endocrine History Hx Diabetes: No - Renal History Hx Renal Disorders: Yes Renal History Comment: bilateral nephrectomies 2006. transplant 2009. polycystic kidney disease. dialysis - Liver History Hx Hepatic Disorders: Yes Hepatic History Comment: ? polycystic liver - Neurological & Psychiatric Hx Hx Neurological and Psychiatric Disorders: Yes Neurological / Psychiatric History Comment: depression and anxiety - Cancer History Hx Cancer: No - Congenital Disorder History Hx Congenital Disorders: No - GI History Hx Gastrointestinal Disorders: Yes Gastrointestinal History Comment: acid reflux - Other Health History Other Health History: missing tooth - Chronic Pain History Chronic Pain: No - Surgical History Prior Surgeries: kidney transplant 2009. head and neck surgery. hermilo. tubal ligation. multiple hernia repairs. bilateral nephrectomy. tonsillectomy ANE Review of Systems - Exercise capacity METS (RN): 3 METS ANE Patient History - Allergies Allergies/Adverse Reactions: vancomycin Allergy (Mild, Verified 09/12/16 14:58) Red Man Syndrome cephalexin monohydrate [From Keflex] Allergy (Verified 09/12/16 14:58) Hives iodine Allergy (Verified 09/12/16 14:58) Rash levofloxacin [From Levaquin] Allergy (Verified 09/12/16 14:58) Other-Enter Comments Sulfa (Sulfonamide Antibiotics) Allergy (Verified 09/12/16 14:58) Other-Enter Comments tree nut [Nuts] Allergy (Verified 09/12/16 14:58) plastic tape Allergy (Uncoded 09/12/16 14:58) Other-Enter Comments - Home Medications Home Medications: Albuterol Sulfate [Albuterol Inhaler Hfa] 1 - 2 puffs IH Q4H PRN 07/29/13 [Last Taken Unknown] Allopurinol [Allopurinol 100 MG (*)] 300 mg PO HS 07/29/13 [Last Taken 04/07/16] Calcitriol [Rocaltrol] 1 mcg PO DAILY 07/29/13 [Last Taken 04/08/16] Nitroglycerin [Nitrostat 0.4 mg (*)] 0.4 mg SL PRN PRN 07/29/13 [Last Taken Unknown] Simvastatin [Zocor 20 mg] 20 mg PO DAILY20 07/29/13 [Last Taken 04/07/16] predniSONE 7.5 mg PO DAILY 07/29/13 [Last Taken 04/08/16] Acyclovir 400 mg PO DAILY@12 04/08/16 [Last Taken Unknown] Carvedilol [Coreg (*)] 6.25 mg PO BIDMEAL 04/08/16 [Last Taken Unknown] Isosorbide Mononitrate [Imdur 30 mg (*)] 30 mg PO DAILY 04/08/16 [Last Taken Unknown] Levothyroxine [Synthroid 112 mcg (*)] 112 mcg PO DAILY06 04/08/16 [Last Taken ] Aspirin 09/11/16 [Last Taken Unknown] Dialyvite Tablet 09/11/16 [Last Taken Unknown] EPIPEN 09/11/16 [Last Taken Unknown] Nexium 09/11/16 [Last Taken Unknown] Norvasc 09/11/16 [Last Taken Unknown] Prograf 09/11/16 [Last Taken Unknown] Qvar 09/11/16 [Last Taken Unknown] Sodium Bicarbonate 09/11/16 [Last Taken Unknown] Tranexamic Acid 09/11/16 [Last Taken Unknown] Zofran Odt 09/11/16 [Last Taken Unknown] Zolpidem Tartrate 09/11/16 [Last Taken Unknown] Bumex 09/12/16 [Last Taken Unknown] - NPO status NPO Since - Liquids (Date): 09/15/16 NPO Since - Liquids (Time): 07:00 NPO Since - Solids (Date): 09/14/16 NPO Since - Solids (Time): 20:00 - Anes Hx Anes Hx: slow to awaken from anesthesia - Smoking Hx Smoking Status: Never smoked - Family Anes Hx Family Hx Anesthesia Complications: none ANE Labs/Vital Signs - Vital Signs Blood Pressure: 116/60 Heart Rate: 63 Respiratory Rate: 15 O2 Sat (%): 93 Height: 157.48 cm Weight: 70.307 kg ANE Physical Exam - Airway Mallampati Score: Class 2 Mouth exam: normal dental/mouth exam - Pulmonary Pulmonary: no respiratory distress - Cardiovascular Cardiovascular: regular rate and rhythym - ASA Status ASA Status: III ANE Anesthesia Plan Anesthesia Plan: general endotracheal anesthesia
[2016-09-15] MEDS ORDERED: MIDAZOLAM 2 MG/2 ML VIAL ONE (09:28)
[2016-09-15] MEDS ORDERED: PROPOFOL 200 MG/20 ML VIAL ONE (09:31)
[2016-09-15] MEDS ORDERED: fentaNYL 100 MCG/2 ML INJ ONE ×2 (09:31→11:36)
[2016-09-15 09:48] LABS: ANION GAP 16 mEq/L (8-16); CALCIUM 9.1 mg/dL (8.5-10.4); CARBON DIOXIDE 26 mEq/l (22-31); CHLORIDE 100 mEq/L (97-110); GLOMERULAR FILTRATION RATE 4; GLUCOSE 92 mg/dL (70-100); POTASSIUM 4.2 mEq/L (3.5-5.2); SODIUM 142 mEq/L (134-144)
[2016-09-15 09:56] LABS: CREATININE 9.8 mg/dL (0.6-1.0)
[2016-09-15] MEDS ORDERED: SUCCINYLCHOLINE CHLORIDE*ANESTHESIA ONLY*200 MG/10 ML SYR IVP ONE (10:03)
[2016-09-15] MEDS ORDERED: GLYCOPYRROLATE 0.2 MG/1 ML VIAL ONE ×3 (10:27)
[2016-09-15] MEDS ORDERED: NEOSTIGMINE METHYLSULFATE 5 MG/5 ML SYR ONE (10:27)
[2016-09-15] MEDS ORDERED: ONDANSETRON 4 MG/2 ML VIAL ONE ×3 (10:28→12:52)
[2016-09-15] MEDS ORDERED: HYDROmorphONE/DILAUDID 1 MG/ML SYR IVP PRN (11:07)
[2016-09-15] MEDS ORDERED: NALOXONE HCL 0.4 MG/ML INJ IVP PRN (11:07)
--- NOTE | 2016-09-15 11:24 | POSTANESTH ---
Post Anesthetic Evaluation Cardiovascular Status: Normal, Stable Respiratory Status: Normal, Stable Level of Consciousness/Mental Status: Can Participate in Eval Pain Control: Adequate, Prn Tx Ordered Nausea/Vomiting Control: Adequate, Prn Tx Ordered
[2016-09-15] MEDS: ONDANSETRON 4 MG/2 ML VIAL IVP PRN ×2 (11:27→12:53)
[2016-09-15] MEDS: fentaNYL 100 MCG/2 ML INJ IVP PRN ×4 (11:38→12:22)
--- NOTE | 2016-09-15 11:46 | POSTOPPROG ---
Post Op Note Date of Operation: 09/15/16 Surgeon: Tami Lentz Anesthesiologist: joe English Anesthesia: GET(General Endotracheal) Pre-op Diagnosis: EDKD, oral cavity dysplasia Post-op Diagnosis: same Procedure: excisional bx of multiple OC lesions, see dict Findings: see dict Inf/Abcess present in the surg proc area at time of surgery?: No Depth: Superfical (Skin SQ) Complications: none apparent. pt to go to dialysis immediately after d/c
[2016-09-15 12:21] VITALS: TEMP 97.2
[2016-09-15] MEDS ORDERED: HYDROmorphONE/DILAUDID 1 MG/ML SYR ONE (12:58)
[2016-09-15 13:51] VITALS: PULSE 57; RESP 16
[2016-09-15 15:12] VITALS: BP 130/64; O2SAT 96
== END 2016-09-15 15:26 | disposition home or self-care (01) ==
LOC: FSGY 08:31
PROVIDERS: ATTEND Otolaryngology
PROC: 0CB Mouth and Throat, Excision (ICD-10-PCS; principal; 2016-09-15 08:30)
PROC: 0CB Mouth and Throat, Excision (ICD-10-PCS; principal; 2016-09-15 08:30)
PROC: 0CB Mouth and Throat, Excision (ICD-10-PCS; principal; 2016-09-15 08:30)
DX: K13.79 Other lesions of oral mucosa (principal); I12.0 Hypertensive chronic kidney disease with stage 5 chronic kidney disease or end stage renal disease; N18.6 End stage renal disease; Z99.2 Dependence on renal dialysis
CPT/HCPCS: J0330; J1100; J1170; J2250; J2405; J2704; J2710; J3010

== ENCOUNTER 2016-10-20 15:31 | Observation (INO) | payer OTHER, MEDICAID ==
--- NOTE | 2016-10-20 16:06 | EDPHY ---
H & P Stated Complaint: sent by neurologist for 5 days intermittent tingling in tongue face an l ar - Personal History LMP (Females 10-55): Over 28 Days Ago Current Tetanus/Diphtheria Vaccine: Unsure Tetanus Vaccine Date: unknown - Medical/Surgical History Hx Asthma: Yes Hx Chronic Respiratory Disease: Yes Hx Diabetes: No Hx Cardiac Disease: Yes Hx Renal Disease: Yes Hx Cirrhosis: No Hx Alcoholism: No Hx HIV/AIDS: No Hx Splenectomy or Spleen Trauma: No Other PMH: hypothyroid. htn. asthma. gerd. kidney transplant 2009- polycyctic kidney disease. renal failure, dialysis 3 days/week - Social History Smoking Status: Never smoked Constitutional: Initial Vital Signs Temperature (C) 36.9 C 10/20/16 15:36 Heart Rate 74 10/20/16 15:36 Respiratory Rate 18 10/20/16 15:36 Blood Pressure 122/71 H 10/20/16 15:36 O2 Sat (%) 95 10/20/16 15:36 O2 Delivery Mode Room Air Allergies/Adverse Reactions: vancomycin Allergy (Mild, Verified 10/20/16 15:35) Red Man Syndrome cephalexin monohydrate [From Keflex] Allergy (Verified 10/20/16 15:35) Hives iodine Allergy (Verified 10/20/16 15:35) Rash levofloxacin [From Levaquin] Allergy (Verified 10/20/16 15:35) Other-Enter Comments Sulfa (Sulfonamide Antibiotics) Allergy (Verified 10/20/16 15:35) Other-Enter Comments tree nut [Nuts] Allergy (Verified 10/20/16 15:35) plastic tape Allergy (Uncoded 09/12/16 14:58) Other-Enter Comments Home Medications: Medication Instructions Recorded Acyclovir [Zovirax 400 mg (*)] 400 mg PO DAILY@1400 10/20/16 Albuterol Sulfate [Proair Hfa] 2 puffs IH Q4 PRN 10/20/16 Allopurinol [Allopurinol 100 MG 100 mg PO HS 10/20/16 (*)] Aspirin EC [Aspirin EC 81 mg (*)] 81 mg PO DAILY 10/20/16 Beclomethasone Qvar 80 [Qvar 80 1 puffs IH BIDI 10/20/16 (*)] Bumetanide [Bumex (*)] 2 mg PO BID@10/20/16 Carvedilol [Coreg (*)] 6.25 mg PO BIDMEAL 10/20/16 Esomeprazole Mag Trihydrate 40 mg PO BID 10/20/16 [Nexium] Folic Acid/Vit B Complex and C 1 each PO DAILY 10/20/16 [Dialyvite Tablet] Isosorbide Mononitrate [Imdur 30 30 mg PO DAILY 10/20/16 mg (*)] Lanthanum Carbonate [Fosrenol] 1,000 mg PO TIDMEAL 10/20/16 Levothyroxine [Synthroid 125 mcg 125 mcg PO DAILY06 10/20/16 (*)] Metolazone [Zaroxolyn 5MG (*)] 5 mg PO MOWEFR 10/20/16 Nitroglycerin [Nitrostat 0.4 mg 0.4 mg SL Q5M PRN 10/20/16 (*)] Ondansetron Odt [Zofran Odt 4 mg 4 mg PO Q4 PRN 10/20/16 (*)] Sodium Bicarbonate [Na Bicarb] 1,300 mg PO BID 10/20/16 Tacrolimus [Prograf] 1 mg PO BID 10/20/16 Zolpidem Tartrate [Ambien 5MG (*)] 5 - 10 mg PO HS 10/20/16 amLODIPine BESYLATE [Norvasc 10 mg 10 mg PO HS 10/20/16 (*)] predniSONE 5 mg PO DAILY@10/20/16 Medical Decision Making ED Course/Re-evaluation: CHIEF COMPLAINT: Paresthesias HISTORY OF PRESENT ILLNESS: This patients is a 51 year old female with history of end-stage renal disease who presents at the request of her neurologist, Dr. Teran, for evaluation of left -sided numbness and paresthesias in her tongue, face, and arm intermittently since Thursday, two days ago. Her first episode, Thursday, lasted 5 hours and began in her mouth and spread out to her arms and legs. She endorses leg weakness and difficulty walking at that time. She had a similar episode yesterday which lasted 6.5 hours. Today, she feels her numbness and tingling are localized to her left side, in her tongue, face, and arm. She feels difficulty moving her forehead on the left side. She endorses prior speech difficulties which have since resolved. She denies fever, current weakness, chest pain, shortness of breath, or other associated symptoms. She has had an MRI ,and is scheduled for MRAs for followup. Her neurologist recommends admission for continued workup. REVIEW OF SYSTEMS: A 10 point review of systems was performed and is negative with the exception of the elements mentioned in the history of present illness. PHYSICAL EXAM: HR, BP, O2 Sat, RR. Temp noted General Appearance: Alert, well hydrated, appropriate, and non-toxic appearing. Head: Atraumatic without scalp tenderness or obvious injury Eyes: Pupils equal, round, reactive to light and accommodation, EOMI, no trauma , no injection. Ears: Clear bilaterally, no perforation, normal landmarks Nose: Atraumatic, no rhinorrhea, clear. Throat: There is no erythema or exudates, no lesions, normal tonsils, mucus membranes moist. Neck: Supple, 2+ carotid upstroke, nontender, no lymphadenopathy. Respiratory: No retractions, no distress, no wheezes, and no accessory muscle use. Lungs are clear to auscultation bilaterally. Cardiovascular: Regular rate and rhythm, no murmurs, rubs, or gallops. Bilateral carotid, radial, dorsalis pedis, and posterior tibial pulses intact. Good capillary refill all extremities. Gastrointestinal: Abdomen is soft, nontender, non-distended, no masses, no rebound, no guarding, no peritoneal signs. Musculoskeletal: Normal active ROM of all extremities, atraumatic. Neurological: Alert, appropriate, and interactive. The patient has normal DTRs and non-focal cranial nerves, motor, sensory, and cerebellar exam. Skin: No rashes, good turgor, no nodules on palpation. Past medical history: Hypothyroid, Hypertension, Asthma, GERD, Renal failure Past surgical history: Kidney transplant 2009 (polycystic kidney disease) Family history: Noncontributory Social history: , lives in [place]. DIFFERENTIAL DIAGNOSIS: The differential diagnosis for the patient's neurologic deficits included but was not limited to peripheral causes, central causes including CVA, TIA, electrolyte abnormalities and dehydration, cardiogenic causes, atypical causes like migraine syndrome. MEDICAL DECISION MAKIN51 year old female presents at the request of her neurologist for evaluation of transient neurologic changes noted since Thursday. Plan to admit for continued evaluation and workup. Plan for MRA scans upon admission. Plan for labs including CBC, BMP, liver, lipase, PTPTT. 16:30 Dr. Monte, hospitalist, accepts admission for continued TIA workup for recurrent neurologic deficits. - Data Points Medications Given: Allopurinol (Allopurinol) 100 mg PO HS UDAY Stop: 04/18/17 20:59 Last Admin: 10/20/16 22:41 Dose: 100 mg Amlodipine Besylate (Norvasc) 10 mg PO HS UDAY Stop: 04/18/17 20:59 Last Admin: 10/20/16 22:40 Dose: 10 mg Beclomethasone Dipropionate (Qvar 80) 1 puffs IH BIDI UDAY Stop: 04/18/17 19:59 Last Admin: 10/20/16 21:27 Dose: Not Given Metolazone (Zaroxolyn) 5 mg PO MOWEFR UDAY Stop: 04/18/17 19:59 Last Admin: 10/20/16 22:43 Dose: 5 mg Miscellaneous Medication (Esomeprazole Mag Trihydrate [Nexium]) 40 mg PO BID UDAY Stop: 04/18/17 20:59 Last Admin: 10/20/16 22:41 Dose: 40 mg Sodium Bicarbonate (Na Bicarb) 1,300 mg PO BID UDAY Stop: 04/18/17 20:59 Last Admin: 10/20/16 22:41 Dose: 1,300 mg Tacrolimus (Prograf) 1 mg PO BID UDAY Stop: 04/18/17 20:59 Last Admin: 10/20/16 22:40 Dose: 1 mg Zolpidem Tartrate (Ambien) 5 - 10 mg PO HS UDAY Stop: 04/18/17 20:59 Last Admin: 10/20/16 22:40 Dose: 10 mg Discontinued Medications Lorazepam (Ativan) 1 mg PO ONCE ONE Stop: 10/20/16 19:55 Last Admin: 10/20/16 20:10 Dose: 1 mg Departure - Departure Disposition: [facility] Acute Clinical Impression: TIA (transient ischemic attack) Qualifiers: Transient cerebral ischemia type: other Qualified Code(s): G45.8 - Other transient cerebral ischemic attacks and related syndromes Condition: Good Report Scribed for: Joby Johnson Report Scribed by: Ciara Irizarry Date of Report: 10/20/16 Time of Report: 16:53
[2016-10-20 17:18] LABS: % IMMATURE GRANULYOCYTES 0.6 % (0.0-1.1); ABSOLUTE IMMATURE GRANULOCYTES 0.04 10^3/uL (0.00-0.10); ADD DIFF? NO; ADD MORPH? NO; ADD SCAN? NO; ATYPICAL LYMPHOCYTE FLAG 0 (0-99); FRAGMENT RBC FLAG 0 (0-99); HEMATOCRIT 33.3 % (38.0-47.0); LEFT SHIFT FLG 0 (0-99); LIPEMIA HEMOLYSIS FLAG 80 (0-99); MEAN CELL HEMOGLOBIN 33.3 pg (27.9-34.1); MEAN CELL VOLUME 100.9 fL (81.5-99.8); MEAN PLATELET VOLUME 11.4 fL (8.7-11.7); PLATELET CLUMPS FLAG 0 (0-99); PLATELET COUNT 192 10^3/uL (150-400); RED CELL DISTRIBUTION WIDTH 15.2 % (11.5-15.2)
[2016-10-20 17:27] LABS: INR 0.98 (0.83-1.16); PROTIME(PATIENT) 12.9 SEC (12.0-15.0)
[2016-10-20 17:28] LABS: APTT 29.5 SEC (23.0-38.0)
[2016-10-20 17:29] LABS: ALANINE AMINOTRANSFERASE 21 IU/L (9-52); ALBUMIN 3.8 g/dL (3.5-5.0); ALKALINE PHOSPHATASE 66 IU/L (38-126); ANION GAP 12 mEq/L (8-16); ASPARTATE AMINOTRANSFERASE 20 IU/L (14-46); BILIRUBIN,TOTAL 0.5 mg/dL (0.1-1.4); BILIRUBIN-CONJUGATED 0.4 mg/dL (0.0-0.5); BILIRUBIN-UNCONJUGATED 0.1 mg/dL (0.0-1.1); CALCIUM 9.5 mg/dL (8.5-10.4); CARBON DIOXIDE 30 mEq/l (22-31); CHLORIDE 95 mEq/L (97-110); CREATININE 4.4 mg/dL (0.6-1.0); GLOMERULAR FILTRATION RATE 11; GLUCOSE 96 mg/dL (70-100); POTASSIUM 4.6 mEq/L (3.5-5.2); SODIUM 137 mEq/L (134-144)
[2016-10-20] MEDS ORDERED: ONDANSETRON DISINTEGRATING 4 MG TAB PO PRN ×2 (19:49→19:51)
[2016-10-20] MEDS ORDERED: ACETAMINOPHEN 325 MG TAB PO PRN (19:49)
[2016-10-20] MEDS ORDERED: ONDANSETRON 4 MG/2 ML VIAL IVP PRN (19:49)
[2016-10-20] MEDS ORDERED: NITROGLYCERIN 0.4 MG BTL SL PRN (19:51)
[2016-10-20] MEDS ORDERED: ALBUTEROL INH PREPACK MDI TAKEHOME PRN (19:51)
[2016-10-20] MEDS ORDERED: LORazepam 1 MG TAB PO ONE (19:54)
[2016-10-20] MEDS ORDERED: ALBUTEROL 200 PUFFS/18 GM MDI IH PRN (19:58)
[2016-10-20] MEDS ORDERED: METOLAZONE 5 MG TAB PO SCH (20:00)
--- NOTE | 2016-10-20 20:37 | GHP ---
[f rep st] HISTORY AND PHYSICAL DATE OF ADMISSION: 10/20/2016 HISTORY OF PRESENT ILLNESS: The patient is a pleasant, 51-year-old female with history of endstage renal disease, failed renal transplant, recent pericardial effusion, who saw her outpatient neurolog ist today. She is complaining of some bilateral numbness and tingling. It happened in Thursday for 5 hours, starts in the mouth and goes up the arms and legs bilaterally, perhaps greater in the left than the right. Yesterday it happened for 6.5 hours. It also involved her left tongue and her for ehead and left arm. She did not notice a relationship to dialysis. Meaning it does not happen duri ng dialysis or when she needs dialysis. She did have dialysis today. She does not take any electro lyte supplements. She follows a low-potassium diet and her potassium and calcium were normal here. She does have anxiety. She says she has a stressful life with a son who had some psychologic issue s and she is a single mother, but she does not describe clear panic symptoms. Maybe a couple months ago, she described some speech difficulties which she said lasted for days. When I speak with her, she feels well. She is not having any numbness or tingling and has an unrema rkable neurologic exam. She was sent over here for "admission" for further evaluation. She does no t qualify as a stroke alert as she has no active neurologic symptoms and is not a candidate for many reasons for thrombolytic therapy. REVIEW OF SYSTEMS: Complete 10-point review of systems conducted and negative except as noted in th e HPI. PAST MEDICAL HISTORY: 1. End-stage renal disease. 2. Failed renal transplant in 2009. 3. Antibody mediated rejection. 4. History of ascites. 5. Abdominal mesh infection. 6. Hyperkalemia. 7. Hypertension. 8. Hyperlipidemia. 9. Polycystic kidney disease. 10. GERD. 11. Hypothyroidism. 12. Secondary hyperparathyroidism. 13. Reactive airway disease. 14. History of pericarditis. 15. Chronic diarrhea. 16. UTI. 17. Herpes esophagitis. 18. DVT. 19. Premature atrial complexes. 20. HPV positive with cervical dysplasia. 21. branch disease. 22. History of bradycardia. ALLERGIES: Vancomycin, Keflex, iodine, levofloxacin, sulfa, tree nuts, and plastic tape. HOME MEDICATIONS: Ondansetron, bicarb, Fosrenol, Ambien, tacrolimus, beclomethasone inhaled, albute rol inhaled, prednisone 5 daily, nitroglycerin, esomeprazole, metolazone, levothyroxine, isosorbide mononitrate, daily vitamin, carvedilol, Bumex, aspirin, amlodipine, allopurinol, acyclovir. SOCIAL HISTORY: No tobacco, no alcohol. Lives in [place]. Single mother. FAMILY HISTORY: Aunt of a brain aneurysm that ruptured. PHYSICAL EXAMINATION: VITAL SIGNS: Temp 37, blood pressure 134/74, pulse 60, breathing 18 times a minute, 93% on room air. GENERAL: No acute distress. HEENT: Sclerae anicteric. Oropharynx clear . Mucous membranes moist. NECK: Supple without lymphadenopathy or JVD. LUNGS: Clear to ausculta tion bilaterally. HEART: S1, S2. ABDOMEN: Soft, nontender, nondistended. LOWER EXTREMITIES: No edema. Calves are nontender. SKIN: Without rash. NEUROLOGIC: Nonfocal and normal. Speech is n ormal. There is no evidence of decreased sensation. I discussed the case with Dr. Joby Johnson. LABS: White count 7.2, hematocrit 33, platelets are 192,000. Coags normal. Sodium 137, potassium 4.6, chloride 95, bicarb 30, BUN 20, creatinine 4.4. LFTs normal. Lipase normal. ASSESSMENT/PLAN: 1. A complex 51-year-old female presents with numbness all over. It does not sound like a neurovas cular event. It is bilateral and did not accompany with weakness. I think it is reasonable to perf orm an MRI and MRA of her head given her iodine allergy, for further evaluation of her potential for aneurysms. Her calcium is normal but I will check an ionized calcium in the morning. It is possib le this represents a panic attack. Notable is an elevated serum bicarb in a patient with dialysis w hich could represent chronic hyperventilation; although she was did not appear this way when I saw h er. This bicarb is higher than she has been in the past as recently as 6 months ago. 2. End-stage renal disease. She is next due for dialysis on Thursday, I have not called Ren[facility]. 3. Hypertension. Continue her medications. 4. Anxiety. We will go ahead and give her some Ativan prior to CAT scan. DISPOSITION: Observation status. /[id number]/MODL
[2016-10-20] MEDS ORDERED: ZOLPIDEM TARTRATE 5 MG TAB PO SCH (21:00)
[2016-10-20] MEDS ORDERED: ALLOPURINOL 100 MG TAB PO SCH (21:00)
[2016-10-20] MEDS: BECLOMETHASONE QVAR 80 MDI IH SCH (21:27)
[2016-10-20] MEDS: TACROLIMUS 1 MG CAP PO SCH (22:40)
[2016-10-20] MEDS: SODIUM BICARBONATE 650 MG TAB PO SCH (22:41)
[2016-10-20] MEDS: ESOMEPRAZOLE MAG TRIHYDRATE 40 MG PO SCH (22:41)
[2016-10-21 04:43] LABS: CHOLESTEROL 215 mg/dL (140-220); CHOLESTEROL/HDL RATIO 4.39 RATIO (1.00-4.44); HIGH DENSITY LIPOPROTEIN 49 mg/dL (40-85); LDL/HDL RATIO 2.49 RATIO (1.00-3.22); LOW DENSITY LIPOPROTEIN 122 mg/dL (80-100); NON-HIGH DENSITY LIPOPROTEIN 166 mg/dL (90-129); TRIGLYCERIDE 221 mg/dL (35-135); VERY LOW DENSITY LIPOPROTEINS 44 mg/dL (8-25)
[2016-10-21] MEDS: BECLOMETHASONE QVAR 80 MDI IH SCH (05:33)
[2016-10-21] MEDS ORDERED: LEVOTHYROXINE 125 MCG TAB PO SCH (06:00)
[2016-10-21] MEDS ORDERED: predniSONE 5 MG TAB PO SCH (07:00)
[2016-10-21] MEDS ORDERED: CARVEDILOL 6.25 MG TAB PO SCH (08:00)
[2016-10-21] MEDS ORDERED: VIT B COMPLEX AND C PO SCH (09:00)
[2016-10-21] MEDS ORDERED: ISOSORBIDE MONONITRATE 30 MG TAB.SR PO SCH (09:00)
[2016-10-21] MEDS ORDERED: ASPIRIN EC 81 MG TAB PO SCH (09:00)
[2016-10-21] MEDS ORDERED: FOLIC ACID PO SCH (09:00)
[2016-10-21] MEDS: BUMETANIDE 2 MG TAB PO SCH ×2 (09:40→15:36)
[2016-10-21] MEDS: SODIUM BICARBONATE 650 MG TAB PO SCH (09:41)
[2016-10-21] MEDS: TACROLIMUS 1 MG CAP PO SCH (09:42)
[2016-10-21] MEDS: ESOMEPRAZOLE MAG TRIHYDRATE 40 MG PO SCH (09:44)
[2016-10-21 10:09] LABS: HEMOGLOBIN A1C 5.1 % (4.0-6.0)
[2016-10-21] MEDS: LANTHANUM CARBONATE 1000 MG PO SCH ×2 (10:41→15:37)
--- NOTE | 2016-10-21 12:12 | ECHO ---
[id number] + + [id number] : : [place] [address] : : [phone] + + Adult Echocardiographic Report + ----+ :Name: OMAR JUNIORroshnialexander Date: 10/21/2016 09:55 AM BP: 140/78 mmHg : : Hospital Admission Number: [id number] Location: 211: :: 1965 Gender: Female Height: 62 in : :Age: 51 yrs Race: WH Weight: 155 lb : :Reason For Study: TIA? : : BSA: 1.7 meters2 : :History: h/o pericarditis : + ----+ MMode/2D Measurements \T\ Calculations IVSd: 1.3 cm RVDd: 3.6 cm FS: 41.0 % LA dimension: LVPWd: 1.1 cm LVIDd: 5.4 cm EDV(Teich): 4.3 cm LVIDs: 3.2 cm 138.6 ml ESV(Teich): 39.7 ml EF(Teich): 71.3 % LVLd ap4: 8.8 cm SV(MOD-sp4): EDV(MOD-sp4): 93.0 ml 137.0 ml LVLs ap4: 7.8 cm ESV(MOD-sp4): 44.0 ml EF(MOD-sp4): 67.9 % Normal Measurement Values: + + :LVIDd (3.5-5.7cm) IVSd (0.6-1.1cm) LVPWd (0.6-1.1cm) Aortic Root (2.0-3.7cm)Left Atrium (1.5-4.0cm): :LV Vol(d) (76-115ml) LV Vol(s) (29-48ml) Ejec Fraction (50-65%)PV Abilio (0.6- 1.2m/s) TV Abilio (0.4-1.0m/s) : :MV E Abilio (0.8-1.0m/s)MV A Abilio (0.3-1.0m/s)LVOT Abilio (0.7-1.2m/s) Asc Ao Abilio ( 0.9-1.8m/s) : + + Doppler Measurements \T\ Calculations MV E max abilio: Ao V2 max: LV V1 max: PA V2 max: 96.7 cm/sec 166.8 cm/sec 133.3 cm/sec 138.5 cm/sec MV A max abilio: Ao max PG: LV V1 max PG: PA max P.5 cm/sec 11.1 mmHg 7.1 mmHg 7.7 mmHg MV E/A: 1.2 MV dec time: 0.20 sec Left Ventricle The left ventricle is normal in size and function. There is mild concentric left ventricular hypertrophy. Ejection Fraction = 65%. Moderate diastolic dysfunction with elevated LV filling pressures. No regional wall motion abnormalities noted. Right Ventricle The right ventricle is normal in size and function. Atria The left atrium is borderline dilated. Right atrial size is normal. Know intact IAS; bubble study 2014 MATTEO. Mitral Valve The mitral valve leaflets appear thickened, but open well. There is no mitral valve stenosis. There is trace mitral regurgitation. Tricuspid Valve The tricuspid valve is normal in structure and function. There is no tricuspid stenosis. There is trace tricuspid regurgitation. Aortic Valve The aortic valve is trileaflet. There is no aortic stenosis. There is no aortic insufficiency. Pulmonic Valve The pulmonic valve is normal in structure and function. Mild pulmonic valvular regurgitation. Great Vessels The aortic root is normal size. Pericardium/Pleural Small pericardial effusion. Conclusion A two-dimensional transthoracic echocardiogram with M-mode and Doppler was performed. There is no obvious source of embolus identified. If one is highly clinically suspected, then transesophageal echocardiography should be considered. The left ventricle is normal in size and function. There is mild concentric left ventricular hypertrophy. Ejection Fraction = 65%. Moderate diastolic dysfunction with elevated LV filling pressures The left atrium is borderline dilated. Know intact IAS; bubble study 2014 MATTEO. There is trace mitral regurgitation. There is trace tricuspid regurgitation. Mild pulmonic valvular regurgitation. Small pericardial effusion. Compared with 09/11/2016, pericardial effusion slightly smaller Final Reading Physician: Dr Barbara Lora electronically signed on 10/21/2016 12:10 PM Ordering Physician: Arias Monte Performed By: Gladys Amador
[2016-10-21] MEDS ORDERED: ACYCLOVIR 400 MG TAB PO SCH (14:00)
--- NOTE | 2016-10-21 14:29 | NEUROPROG ---
Assessment: [id number] CC: Dr. Hammond consulted neurology for altered sensation. Results were placed in the EMR for her review. HPI: This patient was initially seen 10/21/16. She was told by her outpatient neurologist on 10/19/16 to go to the ER for bilateral tingling and numbness that began in her mouth and then spread to her arms and legs. It lasted 5 hours on and then recurred on 10/20/16 for 6.5 hours. She has known anxiety. She reported a couple of times per month she can have speech difficulties that can last for days. She had no symptoms and felt well on admission on 10/20/16. PMHx: ESRD, failed renal transplant 2009, abd mesh infx, HTN, HLD, PKD, GERD, hypothyroidism, 2nd hyperparathyroidism, RAD, Hx pericarditis, chronic diarrhea , UTI, herpes esophagitis, DVT SHx: no tobacco FHx: brain aneurysm ROS: Pt denied acute fever, total vision loss, active severe chest pain, respiratory failure, total body severe rash, total bowel/bladder incontinence, psychosis, active seizures, or active bleeding O: VS bp 123/79 P 68 RR 12 Satting 97% on RA Temp 37.1 C General: Alert Eyes: Fundoscopic exam not able to visualize optic disks CV: Heart RRR, no murmur, no carotid bruit Lungs: Clear to auscultation bilaterally, no rhonchi or rales Neuro: - Mental: . Oriented x person/place/date . concentration appears normal . speech fluency/comprehension normal . memory appears normal . fund of knowledge appear intact - Cranial Nerves: . II: PERRL, VFFTC . III/IV/: EOMI, no nystagmus, normal smooth pursuits, no Ptosis . V: facial sensation intact to LT . VII: face symmetric to eye closure and smile . VIII: hearing intact to conversation . IX/X: uvula raises symmetrically . XI: SCM 5/5 B/L strength . XII: tongue protrudes midline w/nl strength - Motor: . Tone: normal tone in all 4 extremity . Strength: no pronator drift, strength 5/5 throughout (B/L delt, bic, tri, hand yardage estimator, hf/he, df/pf) - Reflexes: B/L bic/BR/patella 2/4 - Sensory: all 4 extremity intact to light touch - Coord: [id number] wnl, ROB wnl, [id number] wnl - Gait: normal casual gait Labs: 10/20/16- CBC Hct 33.3L, Coags wnl, CMP Cl 95L Cr 4.4H 10/21/16- H1AC 5.1, LDL 122 Rads: 10/20/16- Brain MRI w/o con: no acute stroke or other acute changes, posterior fossa benign arachnoid cyst, B/L sinus retention cysts (I personally visualized the images on 10/21/16) 10/20/16- head/neck MRA: unremarkable 10/21/16- TTE: no cardioembolic source seen Assessment: 1. ESRD, failed renal transplant 2. Intermittent tingling in mouth/arms/legs (resolved): These symptoms could be from metabolic abnormality given ESRD, anxiety, atypical migraine, atypical seizure, or neuropathy from renal disease. Given normal brain MRI, head/neck MRA and the fact symptoms have occurred for hours on two separate days I do not suspect a stroke or TIA. Recommend a trial of gabapentin which has anti-seizure , anti-migraine, anti-neuropathic pain, and anti-anxiety properties. She can f/ u with her outpatient neurologist to assess response. Plan: - Trial of gabapentin 300 mg qhs (or adjusted as needed if required to account for her ESRD) - F/U with her outpatient neurologist in 1-2 weeks to assess response to gabapentin and determine any further outpatient w/u needs Objective: Vital Signs Temp Pulse Resp BP Pulse Ox 37.1 C 68 12 123/79 H 97 10/21/16 11:24 10/21/16 11:24 10/21/16 11:24 10/21/16 11:24 10/21/16 11:24 Laboratory Results 10/20/16 17:00 10/20/16 17:00 10/20/16 10/21/16 10/22/16 05:59 05:59 05:59 Intake Total 300 Balance 300 PT 12.9 SEC (12.0-15.0) 10/20/16 17:00 INR 0.98 (0.83-1.16) 10/20/16 17:00 Allergies/Adverse Reactions: vancomycin Allergy (Mild, Verified 10/20/16 15:35) Red Man Syndrome cephalexin monohydrate [From Keflex] Allergy (Verified 10/20/16 15:35) Hives iodine Allergy (Verified 10/20/16 15:35) Rash levofloxacin [From Levaquin] Allergy (Verified 10/20/16 15:35) Other-Enter Comments Sulfa (Sulfonamide Antibiotics) Allergy (Verified 10/20/16 15:35) Other-Enter Comments tree nut [Nuts] Allergy (Verified 10/20/16 15:35) plastic tape Allergy (Uncoded 09/12/16 14:58) Other-Enter Comments
--- NOTE | 2016-10-21 14:41 | PDDCSUM ---
Discharge Summary Discharge Summary: Dates of service 10/20-10/21/16 Discharge dx: # diffuse paresthesias # ESRD # RAD # chronic medical issues: HTN, HLD, GERD, hypothyroid, DVT Consultations: neurology Procedures performed: brain MRI, head/neck MRA, echocardiogram Hospital course by problem: # diffuse paresthesias: involving her whole body essentially and without clear trigger though she does admit to having more anxiety recently. ? anxiety attack versus atypical migraine or atypical seizure; imaging all unremarkable making CVA or structural abnormality very unlikely, all in all not c/w TIA either. Possibly metabolic although labs here were unremarkable. Will dc with gabapentin per neuro recs--could help with migraine and seizure, as well as short course of xanax for possible panic attack. F/u with neurologist as scheduled. # ESRD: she is compliant with her HD and lytes are wnl on admission # chronic medical issues: RAD, HTN, HLD, GERD, hypothyroid, DVT--continue op mgmt Dc home f/u with PCP and neurologist > 35 min spent in dc
[2016-10-21 16:00] VITALS: BP 110/82; PULSE 65; RESP 21; TEMP 98.2; O2SAT 93
== END 2016-10-21 17:22 | disposition home or self-care (01) ==
LOC: F3N 17:55
PROVIDERS: ADMIT Internal Medicine; ATTEND Internal Medicine
DX: R20.2 Paresthesia of skin (principal); N18.6 End stage renal disease; J45.909 Unspecified asthma, uncomplicated; I12.0 Hypertensive chronic kidney disease with stage 5 chronic kidney disease or end stage renal disease; E78.5 Hyperlipidemia, unspecified; K21.9 Gastro-esophageal reflux disease without esophagitis; E03.9 Hypothyroidism, unspecified; Z94.0 Kidney transplant status
CPT/HCPCS: 70544; 70547; 70551; 93306; G0378; J7507; 82947-QW

== ENCOUNTER → 2016-10-31 | Outpatient (CLI) | payer OTHER, MEDICAID ==
--- NOTE | 2016-11-03 10:03 | CPEEG ---
[f rep st] ELECTROENCEPHALOGRAM EEG DATE OF STUDY: 10/31/2016 DATE OF INTERPRETATION: 11/03/2016. INTERPRETATION: Normal EEG during wakefulness and sleep. There were no potentially epileptogenic a bnormalities present in the recording. REPORT: This EEG contains 10-11 Hz alpha activity over the posterior head regions. There was no ab normal activation at rest, during photic stimulation, or hyperventilation. The patient became drows y and fell into sustained non-REM sleep during the study. There was no abnormal activation during d rowsiness, sleep, or during times of arousal. /[id number]/MODL
== END ==
LOC: FCPNEURO 14:06
PROVIDERS: ATTEND Psychiatry & Neurology Neurology

== ENCOUNTER → 2017-03-14 | Outpatient (CLI) | payer OTHER, MEDICAID | LOC: FIMAGING 08:49 | PROVIDERS: ATTEND Psychiatry & Neurology Neurology | DX: R41.3 Other amnesia (principal); R20.2 Paresthesia of skin; M54.2 Cervicalgia | CPT/HCPCS: 82607-90; 84207-90 ==

== ENCOUNTER → 2017-05-11 | Outpatient (CLI) | payer OTHER, MEDICAID | LOC: BHCLAF 15:30 | PROVIDERS: ATTEND Internal Medicine | DX: I31.3 Pericardial effusion (noninflammatory) (principal) | CPT/HCPCS: 93308-PO ==

== ENCOUNTER → 2017-07-17 | Outpatient (CLI) | payer OTHER, MEDICAID | LOC: FIMAGING 13:14 | PROVIDERS: ATTEND Allergy & Immunology Allergy | DX: R51 Headache (principal) ==

== ENCOUNTER → 2017-09-07 | Outpatient (CLI) | payer OTHER, MEDICAID | LOC: FIMAGING 13:41 | PROVIDERS: ATTEND Allergy & Immunology Allergy | DX: J33.8 Other polyp of sinus (principal); R05 Cough ==

== ENCOUNTER → 2017-09-15 | Outpatient (CLI) | payer OTHER, MEDICAID | LOC: FIMAGING 10:25 | PROVIDERS: ATTEND Allergy & Immunology Allergy | DX: D44.0 Neoplasm of uncertain behavior of thyroid gland (principal) ==

== ENCOUNTER → 2017-09-22 | Outpatient (CLI) | payer OTHER, MEDICAID | LOC: FIMAGING 09:36 | PROVIDERS: ATTEND Allergy & Immunology Allergy | DX: R05 Cough (principal); K76.89 Other specified diseases of liver ==

== ENCOUNTER → 2017-11-19 | Outpatient (CLI) | payer OTHER, MEDICAID | LOC: BHFA 10:00 | PROVIDERS: ATTEND Internal Medicine Cardiovascular Disease | DX: R07.9 Chest pain, unspecified (principal) ==

== ENCOUNTER → 2017-11-24 | Outpatient (CLI) | payer OTHER, MEDICAID | LOC: BHLMT 14:00 | PROVIDERS: ATTEND Internal Medicine Cardiovascular Disease | DX: R07.9 Chest pain, unspecified (principal) | CPT/HCPCS: 78452; 93017; A9500; J2785 ==

== ENCOUNTER → 2018-04-06 | Outpatient (CLI) | payer OTHER, MEDICAID | LOC: BHLMT 09:15 | PROVIDERS: ATTEND Internal Medicine Cardiovascular Disease | DX: I35.9 Nonrheumatic aortic valve disorder, unspecified (principal); I10 Essential (primary) hypertension | CPT/HCPCS: 93306-PO ==